=== PATIENT | male | born 1970 | race Caucasian/White ===

== ENCOUNTER 2020-03-04 08:49 | Emergency (ER) | payer OTHER ==
[~2020-03-04 08:49] MED LIST: ACTOS30 MG PO; BACTRIM DS TAB1 EACH PO; BACTROBAN OINT22 GM EXT; CARBAMAZEPINE200 MG PO; COLACE100 MG PO; DICLOFENAC GEL 1% TOP; GLUCOPHAGE500 MG PO; IBU800 MG PO; IBUPROFEN600 MG PO; KEFLEX CAP 500500 MG PO; LISINOPRIL10 MG PO; NEURONTIN800 MG PO; NIZORAL 2% CREA15 GM TOP; NORCO 7.5-3251 EACH PO
[2020-03-04 09:19] LABS: HEMOGLOBIN 16.9 gm/dl (14.0-17.5); RED BLOOD COUNT 5.21 M/UL (4.20-5.50); WHITE BLOOD COUNT 7.1 K/UL (4.5-11.0)
[2020-03-04 09:41] LABS: BUN/CREATININE RATIO 19 (0-10)
[2020-03-04] MEDS ORDERED: BENTYL 20MG TAB20 MG PO (10:46)
[2020-05-07] MEDS ORDERED: KETOCONAZOLE 2%30 GM TP (06:45)
[2020-05-07] MEDS ORDERED: PIOGLITAZONE HC30 MG PO (06:48)
[2020-05-07] MEDS ORDERED: NITROSTAT 0.40.4 MG SL (06:48)
[2020-05-07] MEDS ORDERED: SILVADENE20 GM TP (06:49)
== END 2020-03-04 10:54 | disposition home or self-care (01) ==
LOC: ER1 08:49
PROVIDERS: Physician Assistant
DX: R10.11 Right upper quadrant pain (principal); E11.65 Type 2 diabetes mellitus with hyperglycemia
CPT/HCPCS: 80053; 82150; 83690; 85025; 99284; J1644; J7030; Q9967

== ENCOUNTER → 2020-04-07 | Outpatient (CLI) | payer OTHER ==
[~2020-04-07] MED LIST changes: +BENTYL 20MG TAB20 MG PO; +KETOCONAZOLE 2%30 GM TP; +NITROSTAT 0.40.4 MG SL; +PIOGLITAZONE HC30 MG PO; +SILVADENE20 GM TP
== END ==
LOC: KOH-I 09:55
DX: R10.11 Right upper quadrant pain (principal); K82.8 Other specified diseases of gallbladder
CPT/HCPCS: 76705

== ENCOUNTER → 2020-05-06 | Outpatient (CLI) | payer OTHER | LOC: RAD 09:34 | DX: M54.5 Low back pain (principal); G89.29 Other chronic pain; M54.6 Pain in thoracic spine; M47.814 Spondylosis without myelopathy or radiculopathy, thoracic region; M48.07 Spinal stenosis, lumbosacral region; M47.816 Spondylosis without myelopathy or radiculopathy, lumbar region | CPT/HCPCS: 72072; 72100 ==

== ENCOUNTER → 2020-05-07 | Day surgery (SDC) | payer OTHER | END | disposition home or self-care (01) | LOC: OR 04-16 09:00 | PROVIDERS: Surgery | PROC: 0DJD8ZZ Inspection of Lower Intestinal Tract, Via Natural or Artificial Opening Endoscopic (ICD-10-PCS; 2020-05-07) | PROC: 0DB68ZX Excision of Stomach, Via Natural or Artificial Opening Endoscopic, Diagnostic (ICD-10-PCS; principal; 2020-05-07 09:00) | PROC: 0DB78ZX Excision of Stomach, Pylorus, Via Natural or Artificial Opening Endoscopic, Diagnostic (ICD-10-PCS; 2020-05-07 09:00) | DX: K29.50 Unspecified chronic gastritis without bleeding (principal); B96.81 Helicobacter pylori [H. pylori] as the cause of diseases classified elsewhere; Q43.8 Other specified congenital malformations of intestine; N40.0 Benign prostatic hyperplasia without lower urinary tract symptoms; G89.29 Other chronic pain; E11.42 Type 2 diabetes mellitus with diabetic polyneuropathy; E78.5 Hyperlipidemia, unspecified; I10 Essential (primary) hypertension; M19.09 Primary osteoarthritis, other specified site; M47.26 Other spondylosis with radiculopathy, lumbar region; M54.42 Lumbago with sciatica, left side; M54.41 Lumbago with sciatica, right side; G25.81 Restless legs syndrome; Z79.84 Long term (current) use of oral hypoglycemic drugs; Z79.899 Other long term (current) drug therapy; Z77.22 Contact with and (suspected) exposure to environmental tobacco smoke (acute) (chronic); Z20.822 Contact with and (suspected) exposure to COVID-19 | CPT/HCPCS: 82962; J2704; J7120 ==

== ENCOUNTER → 2020-12-15 | Outpatient (CLI) | payer OTHER | LOC: EMI 08:45 | DX: M54.16 Radiculopathy, lumbar region (principal); M48.061 Spinal stenosis, lumbar region without neurogenic claudication | CPT/HCPCS: 72148 ==

== ENCOUNTER → 2020-12-18 | Outpatient (CLI) | payer OTHER | LOC: NM 06-10 09:00 | DX: R10.11 Right upper quadrant pain (principal) | CPT/HCPCS: 78227; A9537; J2805 ==

== ENCOUNTER → 2021-05-01 | Outpatient (CLI) | payer OTHER | LOC: KOH-I 08:52 | DX: M51.36 Other intervertebral disc degeneration, lumbar region (principal) | CPT/HCPCS: 71046; 73562 ==

== ENCOUNTER 2021-07-10 16:03 | Emergency (ER) | payer OTHER ==
[~2021-07-10 16:03] MED LIST changes: +ACTOS45 MG PO; -PIOGLITAZONE HC30 MG PO
[2021-07-10 17:41] LABS: HEMOGLOBIN 14.7 gm/dl (14.0-17.5); RED BLOOD COUNT 4.49 M/UL (4.20-5.50); WHITE BLOOD COUNT 12.8 K/UL (4.5-11.0)
[2021-07-10 18:01] LABS: BUN/CREATININE RATIO 20 (0-10)
[2021-07-11] MEDS ORDERED: ZOFRAN ODT 4 MG4 MG PO (00:01)
[2021-07-13 05:29] LABS: CANDIDA ALBICANS Not Detected (Negative); CANDIDA KRUSEI Not Detected (Negative); CANDIDA TROPICALIS Not Detected (Negative); ESCHERICHIA COLI Not Detected (Negative); HAEMOPHILUS INFLUENZAE Not Detected (Negative); KLEBSIELLA OXYTOCA Not Detected (Negative); KLEBSIELLA PNEUMONIAE Not Detected (Negative); KPC-CARBAPENEM-RESISTANCE GENE Not Detected (Negative); PROTEUS Not Detected (Negative); PSEUDOMONAS AERUGINOSA Not Detected (Negative); SERRATIA MARCESANS Not Detected (Negative); STAPHYLOCOCCUS Not Detected (Negative); STAPHYLOCOCCUS AUREUS Not Detected (Negative); STREP AGALACTIAE (GROUP B) Not Detected (Negative); STREP PYOGENES (GROUP A) Not Detected (Negative); STREPTOCOCCUS Not Detected (Negative); vanA/B (VANCOMYCIN RESIST GENE Not Detected (Negative)
--- NOTE | 2021-07-13 05:34 | NUR ---
LAB NOTIFIED THAT PATIENT HAD A POSITIVE BLOOD CULTURE. DR. MERCADO WAS MADE AWARE OF A POSITIVE BLOOD CULTURE FOR GRAM + COCCI.
--- NOTE | 2021-07-13 06:15 | NUR ---
0606 PHONE CALL MADE TO THE PATIENT. NO RESPONSE SO A VOICEMAIL WAS LEFT ALONG WITH A CALLBACK NUMBER. CALL ALSO MADE TO PATIENT'S SPOUSE WHO WAS HIS EMERGENCY CONTACT. 0611 CALLBACK FROM THE PATIENT'S SPOUSE AND SHE WAS NOTIFIED OF THE POSITIVE BLOOD CULTURE. PT TO RETURN TO THE ER.
== END 2021-07-11 00:24 | disposition home or self-care (01) ==
LOC: ER1 16:03
PROVIDERS: Emergency Medicine
DX: E11.65 Type 2 diabetes mellitus with hyperglycemia (principal); R07.9 Chest pain, unspecified; Z20.822 Contact with and (suspected) exposure to COVID-19; R51.9 Headache, unspecified; R42 Dizziness and giddiness; R10.9 Unspecified abdominal pain; I10 Essential (primary) hypertension
CPT/HCPCS: 0240U; 70450; 70496; 70498; 71045; 80053; 81001; 82550; 82553; 82962; 83605; 84484; 85025; 85610; 85730; 87040; 87150; 93005; 96374; 99285; J1885; Q9967

== ENCOUNTER 2021-07-13 07:14 | Observation (INO) | payer OTHER ==
[~2021-07-13] VITALS: Ht 175.3 cm; Wt 88.5 kg
[~2021-07-13 07:14] MED LIST changes: +ZOFRAN ODT 4 MG4 MG PO
[2021-07-13 07:56] LABS: HEMOGLOBIN 14.2 gm/dl (14.0-17.5); RED BLOOD COUNT 4.42 M/UL (4.20-5.50)
[2021-07-13 08:03] LABS: WHITE BLOOD COUNT 4.2 K/UL (4.5-11.0)
[2021-07-13 08:14] LABS: BORDETELLA PARAPERTUSSIS Not Detected (Not Detectd); BORDETELLA PERTUSSIS Not Detected (Not Detectd); CHLAMYDIA PNEUMONIAE Not Detected (Not Detectd); CORONAVIRUS HKU1 Not Detected (Not Detectd); CORONAVIRUS NL63 Not Detected (Not Detectd); CORONAVIRUS OC43 Not Detected (Not Detectd); CORONOAVIRUS 229E Not Detected (Not Detectd); HUMAN METAPNEUMOVIRUS Not Detected (Not Detectd); HUMAN RHINOVIRUS/ENTEROVIRUS Not Detected (Not Detectd); INFLUENZA A Not Detected (Not Detectd); INFLUENZA B Not Detected (Not Detectd); MYCOPLASMA PNEUMONIAE Not Detected (Not Detectd); PARAINFLUENZA VIRUS 1 Not Detected (Not Detectd); PARAINFLUENZA VIRUS 2 Not Detected (Not Detectd); PARAINFLUENZA VIRUS 3 Not Detected (Not Detectd); PARAINFLUENZA VIRUS 4 Not Detected (Not Detectd); RESPIRATORY SYNCYTIAL VIRUS Not Detected (Not Detectd)
[2021-07-13 08:35] LABS: BUN/CREATININE RATIO 24 (0-10)
[2021-07-13 09:32] LABS: SARS-CoV-2 NOT DETECTED (Not Detectd)
[2021-07-13] MEDS ORDERED: HYDROCODON-ACE1 EAC2 PO (09:50)
[2021-07-14 06:23] LABS: HEMOGLOBIN 13.3 gm/dl (14.0-17.5); RED BLOOD COUNT 4.11 M/UL (4.20-5.50); WHITE BLOOD COUNT 4.2 K/UL (4.5-11.0)
[2021-07-14 06:51] LABS: BUN/CREATININE RATIO 19 (0-10)
[2021-07-15 07:59] LABS: HEMOGLOBIN 13.4 gm/dl (14.0-17.5); RED BLOOD COUNT 4.3 M/UL (4.20-5.50); WHITE BLOOD COUNT 5.1 K/UL (4.5-11.0)
[2021-07-15 08:26] LABS: BUN/CREATININE RATIO 20 (0-10)
== END 2021-07-15 13:15 | disposition home or self-care (01) ==
LOC: ER1 07:14 → CDU 08:40 → MED SURG 4 08:40
PROVIDERS: Emergency Medicine; Physician Assistant Medical; ADMIT Internal Medicine
DX: R10.11 Right upper quadrant pain (principal); G89.29 Other chronic pain; I10 Essential (primary) hypertension; E11.9 Type 2 diabetes mellitus without complications; Z86.19 Personal history of other infectious and parasitic diseases; Z79.899 Other long term (current) drug therapy; Z20.822 Contact with and (suspected) exposure to COVID-19
CPT/HCPCS: 70450; 71045; 76705; 78227; 80053; 80202; 82550; 82553; 82962; 83735; 84484; 85025; 85027; 85610; 85730; 87040; 87633; 96374; 96375; 96376; 99285; A9537; G0378; J0696; J3370; J7070

== ENCOUNTER → 2021-09-10 | Outpatient (CLI) | payer OTHER ==
[~2021-09-10] MED LIST changes: +HYDROCODON-ACE1 EAC2 PO
== END ==
LOC: KOH-I 12:18
DX: M51.27 Other intervertebral disc displacement, lumbosacral region (principal)
CPT/HCPCS: 72070